=== PATIENT | female | born 1945 | race Caucasian/White ===

== ENCOUNTER 2016-10-31 16:08 | Emergency (ER) | payer MEDICARE ==
[~2016-10-31 16:08] MED LIST: AMBIEN5 M1 PO; AMBIEN5 MG PO; AMITRIPTYLINE H25 M1 PO; AMOXICILLIN500 M1; ASPIR 8181 M1 PO; BREO ELLIPTA 11 EAC1 IH; CALCIUM + D SO1 EAC1 PO; CALCIUM 600 +1 EAC5 PO; CALCIUM 600 +1 EAC6 PO; CALCIUM PO; CARAFATE1 G2 PO; CELEBREX200 M1 PO; CORTISONE; CYCLOBENZAPRINE10 M1 PO; CYCLOBENZAPRINE5 M1 PO; CYMBALTA20 M1 PO; CYMBALTA60 M1 PO; DULOXETINE HCL60 M1 PO; EXCEDRIN EXTRA1 EAC4 PO; FLEXERIL10 MG PO; FLEXERIL5 MG PO; FLONASE ALLERG9.9 ML; GLUCOSAMIN-CHO1 EAC1 PO; HYDROCODON-ACE1 EA16 PO; IBUPROFEN400 MG PO; IBUPROFEN800 M1 PO; MACROBID 100 M100 M1 PO; MAGNESIUM250 M2 PO; MAGNESIUM250 MG PO; NORVASC2.5 M1 PO; PERCOCET 5-3251 EACH PO; PRILOSEC40 M1 PO; PROAIR HFA8.5 GM INH; PROLIA60 MG/1 M1 IM; PROMETHAZINE HC25 M3 PO; SENOKOT-S TABL1 EACH PO; TORADOL10 MG PO; TRAMADOL HCL50 M1 PO; TUMERIC; TURMERIC500 MG PO; TYLENOL500 MG PO; ULTRAM50 M1 PO; VIT PO; VITAMIN D 22000 UNIT PO; VITAMIN D5000 UNI1 PO; VYTORIN 10/20 T1 TAB PO; ZESTRIL5 M1 PO; ZOCOR20 M1 PO; [UNRECOGNIZED DRUG - OTHER] PO
[2016-10-31 17:32] LABS: BASO % 0.4 % (0-2); EOS % 0.4 % (0-7); HCT-HEMATOCRIT 39.6 % (34.0-49.0); HGB-HEMOGLOBIN 13.1 gm/dl (12.0-15.5); IMMATURE GRANULOCYTES ABSOLUTE 0.01 tho/cmm (0-0.03); IMMATURE GRANULOCYTES PERCENT 0.1 % (0-0.3); LYMPH % 18.9 % (20-45); LYMPH ABSOLUTE COUNT 1.8 tho/cmm (0.8-4.5); MCH (MEAN CORPUSCULAR HGB) 29.6 pg (28.0-32.0); MCHC MEAN CORPUSCULAR HGB CONC 33.1 % (32.0-36.0); MCV (MEAN CELL VOLUME) 89.4 fl (82.0-96.0); MEAN PLATELET VOLUME 11.4 cmc (9.4-12.4); MONO % 10.2 % (0-12); NEUTROPHIL ABSOLUTE COUNT 6.6 tho/cmm (1.6-8.0); NEUTROPHIL-AUTOMATED 6.6 tho/cmm (1.6-8.0); PLATELET COUNT 264 tho/cmm (150-450); RED BLOOD COUNT 4.43 mil/cmm (4.00-5.20); RED CELL DISTRIBUTION WIDTH 14.6 % (12.4-16.4); WHITE BLOOD COUNT 9.4 tho/cmm (4.0-10.0)
[2016-10-31 17:47] LABS: ALBUMIN 3.6 g/dl (3.5-5.0); ALKALINE PHOSPHATASE 112 U/L (33-138); ALT/SGPT 27 U/L (12-78); ANION GAP 12 mmol/L (0-20); AST/SGOT 23 U/L (10-40); BILIRUBIN,TOTAL 0.3 mg/dl (0-1.5); BLOOD UREA NITROGEN 20 mg/dl (6-24); CALCIUM 9.6 mg/dl (8.5-10.5); CARBON DIOXIDE-VENOUS 28 mmol/L (22-32); CHLORIDE 107 mmol/l (96-110); CREATININE 0.76 mg/dl (0.50-1.10); GLUCOSE 100 mg/dL (70-110); LIPASE 91 U/L (73-393); POTASSIUM 4.1 mmol/L (3.7-5.1); SODIUM 143 mmol/L (135-145); eGFR VALUE FOR BLACK >90 mL/Min
[2016-10-31] MEDS ORDERED: BENTYL10 M1 PO (18:38)
[2016-10-31] MEDS ORDERED: ZOFRAN ODT4 MG PO (18:38)
[2016-10-31] MEDS ORDERED: LOPERAMIDE2 M2 PO (18:38)
== END 2016-10-31 18:57 ==
LOC: EDMED 16:08
PROVIDERS: Emergency Medicine
DX: R11.10 Vomiting, unspecified (principal); R19.7 Diarrhea, unspecified; R10.31 Right lower quadrant pain; K21.9 Gastro-esophageal reflux disease without esophagitis; E78.00 Pure hypercholesterolemia, unspecified; J45.909 Unspecified asthma, uncomplicated; M79.7 Fibromyalgia; Z90.710 Acquired absence of both cervix and uterus
CPT/HCPCS: J2405; J7030; Q9967